=== PATIENT | female | born 1995 | race Caucasian/White ===

== ENCOUNTER 2017-03-17 17:44 | Observation (INO) | payer OTHER ==
[2017-03-17] MEDS ORDERED: Lactated Ringers 1,000 ML IV SCH (18:30)
[2017-03-17] MEDS ORDERED: TYLENOL 325 MG PO PRN (18:31)
[2017-03-17] MEDS ORDERED: Lactated Ringers 1,000 ML IV ONE (18:38)
[2017-03-17 18:59] VITALS: O2SAT 105
[2017-03-17 19:32] LABS: COMPLETE URINE MICROSCOPIC? NO; Collection Type CLEAN CATCH
[2017-03-17 19:41] LABS: BASOPHIL % 0.1 % (0.0-0.4); Eosinophil % 0.4 % (0.00-5.0); Granulocytes % 71.8 % (36.0-66.0); Lymphocytes % 18.4 % (24.0-44.0); Mean Cell Volume 87.3 fl (78-100); Mean Corpuscular Hemoglobin 30.3 pg (26-32); Mean Platelet Volume 11.2 fl (6-9.5); Monocytes % 9.3 % (0.0-12.0); Platelet Count 246 K/mm3 (150-450); Red Blood Count 4.72 M/mm3 (4.1-5.4)
[2017-03-17 20:07] LABS: ALKALINE PHOSPHATASE 56 U/L (46-116); ANION GAP 13.1 MEQ/L (5-15); BILIRUBIN,TOTAL 0.2 mg/dL (0.2-1.0); BLOOD UREA NITROGEN 6 mg/dL (9-20); CHLORIDE 106 mEq/L (98-107); Carbon Dioxide 24.2 mEq/L (21-32); Glucose 78 MG/DL (70-110); Potassium 3.5 mEq/L (3.5-5.1); SGOT/AST 14 U/L (15-37); SGPT/ALT 16 U/L (12-78); SODIUM 140 mEq/L (136-145); Total Protein 6.8 gm/dL (6.4-8.2)
[2017-03-17 22:58] VITALS: BP 127/71; PULSE 91
== END 2017-03-17 22:00 | disposition home or self-care (01) ==
LOC: MED SURG 17:44
PROVIDERS: ADMIT Family Medicine; ATTEND Family Medicine
DX: Z34.02 Encounter for supervision of normal first pregnancy, second trimester (principal)
CPT/HCPCS: 36415; 80053; 80307; 81002; 84550; 85025; 87086; G0378

== ENCOUNTER 2017-05-06 13:26 | Observation (INO) | payer OTHER ==
[2017-05-06 13:54] LABS: BASOPHIL % 0.1 % (0.0-0.4); Eosinophil % 0.3 % (0.00-5.0); Granulocytes % 76.6 % (36.0-66.0); Mean Cell Volume 88.6 fl (78-100); Mean Corpuscular Hemoglobin 30.4 pg (26-32); Mean Platelet Volume 11.9 fl (6-9.5); Platelet Count 188 K/mm3 (150-450); Red Blood Count 4.84 M/mm3 (4.1-5.4); Red Cell Distribution Width 13.2 % (11.5-14.0); White Blood Count 12.4 K/mm3 (4.0-10.5)
[2017-05-06 14:20] LABS: ALBUMIN 2.6 g/dL (3.4-5.0); ALKALINE PHOSPHATASE 82 U/L (46-116); ANION GAP 12.6 MEQ/L (5-15); BLOOD UREA NITROGEN 5 mg/dL (9-20); CHLORIDE 105 mEq/L (98-107); Carbon Dioxide 24.4 mEq/L (21-32); Glucose 94 MG/DL (70-110); Potassium 3.9 mEq/L (3.5-5.1); SGOT/AST 17 U/L (15-37); SGPT/ALT 16 U/L (12-78); SODIUM 138 mEq/L (136-145)
[2017-05-06 23:59] VITALS: BP 156/95; PULSE 56
== END 2017-05-06 23:00 | disposition home or self-care (01) ==
LOC: LAB 13:26 → OB 21:02 → UNDOADMOB 21:02 → UNDODISOB 23:00
PROVIDERS: ADMIT Family Medicine; ATTEND Family Medicine
DX: Z34.03 Encounter for supervision of normal first pregnancy, third trimester (principal)
CPT/HCPCS: 36415; 80053; 84550; 85025; G0378

== ENCOUNTER 2017-05-07 12:47 | Observation (INO) | payer OTHER ==
[2017-05-07 15:54] LABS: 24 HR TOT. PROTEIN CALCULATION 0.399 GM/DAY (0.04-0.15)
[2017-05-07] MEDS ORDERED: Trandate 100 MG PO ONE ×2 (18:23→20:00)
[2017-05-07] MEDS: APRESOLINE 20 MG/ML INJ IV PRN (23:49)
[2017-05-08 05:39] LABS: BASOPHIL % 0.2 % (0.0-0.4); Eosinophil % 0.3 % (0.00-5.0); Granulocytes % 73.1 % (36.0-66.0); Lymphocytes % 17.1 % (24.0-44.0); Mean Corpuscular Hemoglobin 30.5 pg (26-32); Mean Platelet Volume 12.2 fl (6-9.5); Monocytes % 9.3 % (0.0-12.0); Platelet Count 166 K/mm3 (150-450); Red Blood Count 4.29 M/mm3 (4.1-5.4); Red Cell Distribution Width 13.1 % (11.5-14.0); White Blood Count 12.1 K/mm3 (4.0-10.5)
[2017-05-08 06:15] LABS: ALBUMIN 2.2 g/dL (3.4-5.0); ALKALINE PHOSPHATASE 68 U/L (46-116); ANION GAP 13.8 MEQ/L (5-15); BLOOD UREA NITROGEN 5 mg/dL (9-20); CHLORIDE 108 mEq/L (98-107); Carbon Dioxide 21.3 mEq/L (21-32); Glucose 84 MG/DL (70-110); Potassium 3.7 mEq/L (3.5-5.1); SGOT/AST 15 U/L (15-37); SGPT/ALT 16 U/L (12-78); SODIUM 139 mEq/L (136-145)
[2017-05-08] MEDS ORDERED: TYLENOL 325 MG PO PRN (06:34)
[2017-05-08] MEDS: APRESOLINE 20 MG/ML INJ IV PRN (07:26)
[2017-05-08] MEDS ORDERED: Zofran 4 MG/2 ML VIAL IV PRN (08:06)
--- NOTE | 2017-05-08 08:16 | XRAY ---
Indication: well-being. Hypertension. 2-dimensional OB ultrasound performed. Comparison: February 18, 2017. Again there is a single viable intrauterine in cephalic presentation. Normal four-chamber heart with heart rate 170 bpm. Normal 3 vessel cord and cord insertion. Visualized spine, stomach, and bladder are unremarkable. Placenta is posterior fundal without abruption/previa. Cervical length measures 2.6 cm. BPD measures 7.57 cm corresponding to 30 weeks 3 days. HC measures 25.83 cm corresponding to 28 weeks 1 days. AC measures 24.68 cm corresponding to 28 weeks 6 days. FL measures 5.46 cm corresponding to 28 weeks 6 days. BILLY is 9.4 cm. Umbilical cord S/D ratio is 6.1-10.1. Impression: Again single viable intrauterine with mean gestational age 29 weeks 1 days. There has been progression in the . Fetus measures 7 days smaller than previous exam. 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
[2017-05-08] MEDS ORDERED: Celestone Soluspan 6MG/ML IM ONE (09:23)
[2017-05-08] MEDS ORDERED: Lactated Ringers 1,000 ML IV SCH (09:30)
[2017-05-08] MEDS ORDERED: Magnesium Sulfate 40 Gm/1000 Ml H2O Premix*** 1,000 ML IV SCH (09:30)
--- NOTE | 2017-05-08 09:32 | PCM.HP ---
History of Present Illness - Chief Complaint Chief Complaint: OB CHECK History of Present Illness: is a 21 year old female at 30 3/7 wks EGA by 12 week ultrasound he presents to the labor and delivery department with complaints of elevated blood pressure. She was seen in office 2 days ago and had elevated bp for the first time, 24 hour urine protein was 399mg. She was started on po labetalol last night and had required 2 spot doses of IV hydralazine overnight. she complained of headache and vomited x 1 this am. - Review of Systems Constitutional: No Fever, No Chills Respiratory: No Cough, No Short Of Breath Cardiac: No Chest Pain, No Edema, No Syncope Abdominal/Gastrointestinal: Nausea, Vomiting, No Abdominal Pain, No Diarrhea Neurological: Headache, No Seizure All Other Systems: Reviewed and Negative Medications & Allergies Home Medications: Home Medication List Hydroxyzine HCl 25 mg [Atarax 25 mg] 25 mg PO TID PRN 05/07/17 [History Confirmed 05/07/17] Allergies/Adverse Reactions: Allergies Allergy/AdvReac Type Severity Reaction Status Date / Time Sulfa (Sulfonamide Allergy Intermediate Hives Verified 05/06/17 21:31 Antibiotics) - Female History Expected Date of Delivery: 07/14/17 - Social History Smoking Status: Never smoker Exposure to second hand smoke: Yes - Physical Exam Vital Signs: Vital Signs - 24 hr Temp Pulse Resp BP BP 05/08/17 08:30 117 H 144/89 05/08/17 08:15 96 H 147/92 05/08/17 08:00 111 H 152/95 05/08/17 07:45 139 H 160/102 05/08/17 07:30 85 154/92 05/08/17 07:00 56 L 167/99 05/08/17 06:30 60 143/81 05/08/17 06:00 67 142/87 05/08/17 05:30 67 145/91 05/08/17 04:56 81 139/88 05/08/17 04:30 96 H 152/78 05/08/17 04:00 82 135/80 05/08/17 03:30 75 128/79 05/08/17 03:00 72 129/81 05/08/17 02:30 71 131/79 05/08/17 02:00 74 124/69 05/08/17 01:30 75 131/68 05/08/17 01:00 69 132/74 05/08/17 00:45 76 142/78 05/08/17 00:30 74 135/78 05/08/17 00:15 68 135/78 05/08/17 00:00 60 146/83 05/07/17 23:45 50 L 178/97 05/07/17 23:30 55 L 181/96 05/07/17 23:15 98.8 F 52 L 159/98 05/07/17 23:00 50 L 152/94 05/07/17 22:45 56 L 153/90 05/07/17 22:30 52 L 168/94 05/07/17 22:15 53 L 167/100 05/07/17 22:00 52 L 156/100 05/07/17 21:45 60 152/92 05/07/17 21:30 56 L 154/92 05/07/17 21:15 61 175/92 05/07/17 21:00 60 167/98 05/07/17 20:45 56 L 173/103 05/07/17 20:30 64 164/95 05/07/17 20:15 57 L 176/100 05/07/17 20:00 61 191/109 05/07/17 18:04 87 18 167/114 05/07/17 18:00 87 18 167/114 General Appearance: no apparent distress, alert Neurologic Exam: alert, oriented x 3, cooperative, normal mood/affect, nml cerebellar function, nml station & gait, sensation nml, other (DTR 2+ brisk BLE) , No motor deficits Eye Exam: PERRL/EOMI, eyes nml inspection Respiratory Exam: normal breath sounds, lungs clear, No respiratory distress Cardiovascular Exam: regular rate/rhythm, normal heart sounds, normal peripheral pulses Gastrointestinal/Abdomen Exam: soft, normal bowel sounds, No tenderness, No mass Extremity Exam: normal inspection, normal range of motion, pelvis stable Results - Labs Lab/Micro Results: Lab Results-Last 24 Hours 05/07/17 05/08/17 05/08/17 Range/Units 12:00 05:16 05:16 WBC 12.1 H (4.0-10.5) K/mm3 RBC 4.29 (4.1-5.4) M/mm3 Hgb 13.1 (12.0-16.0) gm/dl Hct 38.2 (35-47) % MCV 89.0 (78-100) fl MCH 30.5 (26-32) pg MCHC 34.3 (32-36) g/dl RDW 13.1 (11.5-14.0) % Plt Count 166 (150-450) K/mm3 MPV 12.2 H (6-9.5) fl Gran % 73.1 H (36.0-66.0) % Lymphocytes % 17.1 L (24.0-44.0) % Monocytes % 9.3 (0.0-12.0) % Eosinophils % 0.3 (0.00-5.0) % Basophils % 0.2 (0.0-0.4) % Basophils # 0.02 (0-0.4) Sodium 139 (136-145) mEq/L Potassium 3.7 (3.5-5.1) mEq/L Chloride 108 H (98-107) mEq/L Carbon Dioxide 21.3 (21-32) mEq/L Anion Gap 13.8 (5-15) MEQ/L BUN 5 L (9-20) mg/dL Creatinine 0.55 (0.55-1.30) mg/dl Estimated GFR > 60 ML/MIN Glucose 84 (70-110) MG/DL Calcium 8.6 (8.5-10.1) mg/dL Total Bilirubin 0.10 L (0.2-1.0) mg/dL AST 15 (15-37) U/L ALT 16 (12-78) U/L Alkaline Phosphatase 68 (46-116) U/L Serum Total Protein 6.0 L (6.4-8.2) gm/dL Albumin 2.2 L (3.4-5.0) g/dL Ur 24 Hour Volume 1975 ML Ur Total Protein 24 Hr 21.5 MG/DL U Tot Protein 24h, Calc 0.399 H (0.04-0.15) GM/DAY - Radiology Impressions Radiology Exams & Impressions: Radiology Procedures Category Date Time Status OB >14 WKS 1st GESTATION [US] Stat Exams 05/07/17 18:24 Completed Assessment/Plan (1) Pre-eclampsia Current Visit: Yes Status: Acute Assessment & Plan: I spoke with Dr Lenny Castaneda high risk MFM information engineer at , he agrees with current management, requests that transfer be arranged to [facility] via [facility] with highway painter nurse. will start magnesium sulfate 6g bolus then 2g/hr infusion and give celestone 12mg IM per his request. Code(s): O14.90 - UNSPECIFIED PRE-ECLAMPSIA, UNSPECIFIED TRIMESTER (2) Uteroplacental insufficiency, third trimester Current Visit: Yes Status: Acute Code(s): O36.5130 - MATERN CARE FOR OR SUSP PLACNTL INSUFF, THIRD TRI, UNSP
--- NOTE | 2017-05-08 09:34 | PCM.DCORD ---
- Discharge Disposition: XFER OTHER Condition: Serious Prescriptions: No Action Hydroxyzine HCl 25 mg [Atarax 25 mg] 25 mg PO TID PRN PRN Reason: Anxiety Additional Instructions: transfer to [facility] accepting physician Dr Lenny Castaneda
[2017-05-08 09:38] LABS: INR 0.87 (0.8-3.0); PROTIME 9.8 SECONDS (9.95-12.35)
[2017-05-08 09:41] LABS: PTT 25.8 SECONDS (25.3-37.0)
[2017-05-08 10:27] LABS: COMPLETE URINE MICROSCOPIC? YES; Collection Type CATH; Ph 7.5 (5-6)
[2017-05-08 10:28] LABS: Epithelial Cells FEW /HPF (FEW)
[2017-05-08 12:27] VITALS: O2SAT 95
[2017-05-08 12:36] VITALS: BP 150/93; PULSE 98
== END 2017-05-08 11:48 ==
LOC: LAB 12:47 → OB 17:53
PROVIDERS: ADMIT Family Medicine; ATTEND Family Medicine
DX: Z34.03 Encounter for supervision of normal first pregnancy, third trimester (principal)
CPT/HCPCS: 36415; 76805; 80053; 81000; 84156; 85025; 85610; 85730; 87086; G0378; J0360; J0702; J2405; A9270-GY

== ENCOUNTER 2018-11-21 18:48 | Emergency (ER) | payer OTHER ==
[2018-11-21 19:09] VITALS: BP 124/79; PULSE 121; O2SAT 97
[2018-11-21] MEDS ORDERED: TYLENOL 325 MG PO ONE (19:18)
--- NOTE | 2018-11-21 19:23 | ERPHSYRPT ---
- History of Present Illness Time Seen by Provider: 11/21/18 19:11 Source: patient Exam Limitations: no limitations Patient Subjective Stated Complaint: pt here for sorethroat, fever, congestion today Triage Nursing Assessment: pt alert, resp easy, skin w/d/p. no edema, mucus membranes moist Physician History: 23 y/o white female arrives with complaint of sorethroat, cought fever for 2-3 days. no urinary symptoms, no vomiting , no diarrhea, no shortness of breath. Past medical history hypertension. past surgical history c section. social history : occasional alcohol use. Timing/Duration: day(s) (2-3 days) Severity: moderate Modifying Factors: Improves With: acetaminophen (tylenol at noon today) Associated Symptoms: cough, fever, other (sore throat), No nausea, No vomiting, No abdominal pain, No shortness of breath, No heartburn, No diaphoresis, No chills, No chest pain, No headaches, No loss of appetite, No malaise, No rash, No syncope, No seizure, No weakness Allergies/Adverse Reactions: Sulfa (Sulfonamide Antibiotics) Allergy (Intermediate, Verified 11/21/18 19:09) Hives Home Medications: Labetalol HCl 200 mg PO BID 05/25/17 [History] Hx Tetanus, Diphtheria Vaccination/Date Given: Yes Hx Influenza Vaccination/Date Given: Yes Hx Pneumococcal Vaccination/Date Given: No Immunizations Up to Date: Yes - Review of Systems Constitutional: Fever, No Chills, No Fatigue, No Lethargy, No Malaise, No Night Sweats, No Weakness, No Weight Loss Eyes: No Symptoms Ears, Nose, & Throat: Ear Pain, Nose Congestion, Throat Pain, Painful Swallowing , No Ear Discharge, No Hearing Changes, No Tinnitus, No Nose Pain, No Nose Discharge, No Sinus Drainage, No Epistaxis, No Mouth Pain, No Mouth Swelling, No Loose Teeth, No Throat Swelling, No Hoarse, No Snoring, No Stridor Respiratory: Cough, No Cyanosis, No Dyspnea, No Dyspnea on Exertion (GERBER), No Stridor, No Wheezing Cardiac: No Chest Pain, No Edema, No Syncope Genitourinary Symptoms: No Dysuria Musculoskeletal: No Back Pain, No Neck Pain Skin: No Rash Neurological: No Dizziness, No Focal Weakness, No Sensory Changes Psychological: No Symptoms Endocrine: No Symptoms All Other Systems: Reviewed and Negative - Past Medical History Pertinent Past Medical History: Yes Cardiac History: Hypertension - Past Surgical History Past Surgical History: Yes Female Surgical History: Section - Social History Smoking Status: Never smoker Exposure to second hand smoke: No Drug Use: none Patient Lives Alone: No - Female History Hx Last Menstrual Period: 2 weeks ago Hx Now: No (unsure) - Nursing Vital Signs Nursing Vital Signs: Initial Vital Signs Temperature 101.7 F 11/21/18 19:05 Pulse Rate 121 H 11/21/18 19:05 Respiratory Rate 16 11/21/18 19:05 Blood Pressure 124/79 11/21/18 19:05 O2 Sat by Pulse Oximetry 97 11/21/18 19:05 Pain Scale Pain Intensity 3 - Physical Exam General Appearance: mild distress, alert Eye Exam: PERRL/EOMI, eyes nml inspection Ears, Nose, Throat Exam: TMs normal, moist mucous membranes, pharyngeal erythema , No pharynx normal (throat erythematous), No dry mucous membranes, No TM abnormal (R), No TM abnormal (L), No tonsillar exudate Neck Exam: normal inspection, non-tender, supple, full range of motion Respiratory Exam: normal breath sounds, lungs clear, No respiratory distress Cardiovascular Exam: regular rate/rhythm, normal heart sounds, normal peripheral pulses, capillary refill <2 sec Gastrointestinal/Abdomen Exam: soft, normal bowel sounds, No tenderness, No mass Back Exam: normal inspection, normal range of motion, No CVA tenderness, No vertebral tenderness Extremity Exam: normal inspection, normal range of motion, pelvis stable Neurologic Exam: alert, oriented x 3, cooperative, product advisor II-XII nml as tested, normal mood/affect, nml cerebellar function, nml station & gait, sensation nml, No motor deficits Skin Exam: normal color, warm, dry, other, No rash Lymphatic Exam: No adenopathy SpO2 Interpretation: normal (97%) SpO2: 97 Oxygen Delivery: Room Air - Course Nursing assessment & vital signs reviewed: Yes Ordered Tests: Active Orders 24 hr Category Date Time Status HCG,QUALITATIVE URINE Stat Lab 11/21/18 19:53 Completed UA W/RFX UR CULTURE Stat Lab 11/21/18 19:53 Completed Medication Summary Discontinued Medications Generic Name Dose Route Start Last Admin Trade Name Freq PRN Reason Stop Dose Admin Acetaminophen 975 mg 11/21/18 19:18 11/21/18 19:57 Tylenol 325 Mg PO 11/21/18 19:19 975 mg STAT ONE Administration Acetaminophen Confirm 11/21/18 19:55 Tylenol 325 Mg Administered 11/21/18 19:56 Dose 975 mg .ROUTE .STK-MED ONE Ibuprofen 600 mg 11/21/18 20:12 11/21/18 20:20 Motrin 600 Mg PO 11/21/18 20:13 600 mg STAT ONE Administration Ibuprofen Confirm 11/21/18 20:14 Motrin 600 Mg Administered 11/21/18 20:15 Dose 600 mg .ROUTE .STK-MED ONE Lab/Rad Data: Laboratory Results 11/21/18 11/21/18 11/21/18 Range/Units 19:53 19:53 19:22 Urine Color YELLOW (YELLOW) Urine Appearance CLEAR (CLEAR) Urine pH 7.0 (5-6) Ur Specific Ramsey 1.021 (1.005-1.025) Urine Protein NEGATIVE (Negative) Urine Ketones NEGATIVE (NEGATIVE) Urine Blood SMALL (0-5) [place]/ul Urine Nitrite NEGATIVE (NEGATIVE) Urine Bilirubin NEGATIVE (NEGATIVE) Urine Urobilinogen 2 (0-1) mg/dL Ur Leukocyte Esterase NEGATIVE (NEGATIVE) Urine WBC (Auto) 0-2 (0-5) /HPF Urine RBC (Auto) 3-5 (0-2) /HPF U Epithel Cells (Auto) RARE (FEW) /HPF Urine Bacteria (Auto) RARE (NEGATIVE) /HPF Urine Mucus (Auto) SLIGHT (NEGATIVE) /HPF Urine Culture Reflexed NO (NO) Urine Glucose NEGATIVE (NEGATIVE) mg/dL Urine HCG, Qual NEGATIVE (Negative) Group A Strep Antibody NEGATIVE (NEGATIVE) - Progress Progress: improved Progress Note: 11/21/18 20:09 patient feeling better after oral tylenol. the patient's strep test is negative, the patient's hcg is negative, the patient 's urine is negative. unfortunately her temperature has increased will give oral motrin. 11/21/18 21:09 Patient's temperature has decreased. Patient is in no distress. Will discharge. - Departure Time of Disposition: 21:09 Departure Disposition: Home Clinical Impression: Viral pharyngitis Fever Qualifiers: Fever type: unspecified Qualified Code(s): R50.9 - Fever, unspecified Condition: Fair Critical Care Time: No Referrals: DIDIER GARG [Primary Care Provider] - Additional Instructions: Return home. Plenty of fluids. Tylenol every 4 hours as needed for temperature greater than 100.5. Motrin every 6 hours as needed for temperature greater than 100.5. Follow-up with your family doctor if symptoms are worse, no better in 24-48 hours, or persist longer than 72 hours. Return for acute distress or for severe symptoms.
[2018-11-21] MEDS ORDERED: TYLENOL 325 MG ONE (19:55)
[2018-11-21 20:01] LABS: Appearance CLEAR (CLEAR); Bilirubin NEGATIVE (NEGATIVE); Blood SMALL Ery/ul (0-5); Glucose NEGATIVE (NEGATIVE); Ketones NEGATIVE (NEGATIVE); Leukocyte Esterase NEGATIVE (NEGATIVE); Nitrite NEGATIVE (NEGATIVE); Protein,Urine Dip NEGATIVE (Negative); Specific Gravity 1.021 (1.005-1.025); Urobilinogen 2 mg/dL (0-1)
[2018-11-21] MEDS ORDERED: MOTRIN 600 MG PO ONE (20:12)
[2018-11-21] MEDS ORDERED: MOTRIN 600 MG ONE (20:14)
== END 2018-11-21 21:20 | disposition home or self-care (01) ==
LOC: ED 18:48
DX: J02.9 Acute pharyngitis, unspecified (principal); R50.9 Fever, unspecified; Z79.899 Other long term (current) drug therapy
CPT/HCPCS: 81001; 84703; 87651; 99283; A9270-GY

== ENCOUNTER 2020-04-29 00:27 | Emergency (ER) | payer OTHER ==
[2020-04-29 00:39] VITALS: O2SAT 98
--- NOTE | 2020-04-29 00:59 | ERPHSYRPT ---
- History of Present Illness Source: patient Exam Limitations: no limitations Patient Subjective Stated Complaint: pt c/o vaginal bleeding and is 13 wks Triage Nursing Assessment: pt c/o vaginal bleeding and is 13 weeks . At 1830, small amt of spotting, but at 2230 mod amt of bleeding and had to change her entire pants. Pt had some mild cramping yesterday. Physician History: WF 13wks preg w 2 episodes of vaginal bleeding. Pt denies any pain. First episode similar yo a period, but the second episode heavier. Pt denies N/V/D/ fever. Shge is A+. Timing/Duration: other (2 episodes since 1829) Quality: other (No pain) Onset Location: other (No pain) Severity of Pain-Max: none Severity of Pain-Current: none Prior abdominal problems: none Sexual intercourse history: other () Modifying Factors: Improves With: nothing Associated Symptoms: denies symptoms Allergies/Adverse Reactions: Sulfa (Sulfonamide Antibiotics) Allergy (Intermediate, Verified 04/29/20 00:44) Hives Home Medications: Labetalol HCl 200 mg PO BID 05/25/17 [History] Hx Tetanus, Diphtheria Vaccination/Date Given: Yes Hx Influenza Vaccination/Date Given: No Hx Pneumococcal Vaccination/Date Given: No Travel Risk - International Travel Have you traveled outside of the country in past 3 weeks: No Have you or anyone close to you been diagnosed with or: No Do your reside in a community with a known COVID-19 case?: Yes If Yes where:: [facility] - Coronavirus Screening Has patient experienced Coronavirus symptoms: No - Review of Systems Constitutional: No Symptoms Eyes: No Symptoms Ears, Nose, & Throat: No Symptoms Respiratory: No Symptoms Cardiac: No Symptoms Abdominal/Gastrointestinal: No Symptoms Genitourinary Symptoms: No Dysuria, No Frequency, No Hematuria Musculoskeletal: No Symptoms Skin: No Symptoms Neurological: No Symptoms Psychological: No Symptoms Endocrine: No Symptoms Hematologic/Lymphatic: No Symptoms Immunological/Allergic: No Symptoms - Past Medical History Pertinent Past Medical History: Yes Neurological History: No Pertinent History ENT History: No Pertinent History Cardiac History: Hypertension, Other Respiratory History: No Pertinent History Endocrine Medical History: No Pertinent History Musculoskeletal History: No Pertinent History GI Medical History: No Pertinent History History: No Pertinent History Psycho-Social History: Anxiety Female Reproductive Disorders: No Pertinent History Other Medical History: leaky heart valve - Past Surgical History Past Surgical History: Yes Neuro Surgical History: No Pertinent History Cardiac: No Pertinent History Respiratory: No Pertinent History Gastrointestinal: No Pertinent History Genitourinary: No Pertinent History Musculoskeletal: No Pertinent History Female Surgical History: Section - Social History Smoking Status: Never smoker Exposure to second hand smoke: No Drug Use: none Patient Lives Alone: No Significant Family History: no pertinent family hx - Female History Hx Now: Yes Expected Date of Delivery: 11/06/20 Gestational Age: G2, P1 - Nursing Vital Signs Nursing Vital Signs: Initial Vital Signs Temperature 98.0 F 04/29/20 00:33 Pulse Rate 85 04/29/20 00:33 Respiratory Rate 15 04/29/20 00:33 Blood Pressure 144/88 04/29/20 00:33 O2 Sat by Pulse Oximetry 98 04/29/20 00:33 Pain Scale Pain Intensity 0 - Physical Exam General Appearance: no apparent distress Eye Exam: PERRL/EOMI, eyes nml inspection Ears, Nose, Throat Exam: normal ENT inspection, TMs normal, pharynx normal, moist mucous membranes Neck Exam: normal inspection, non-tender Respiratory Exam: normal breath sounds, lungs clear, airway intact, No respiratory distress Cardiovascular Exam: regular rate/rhythm, normal heart sounds Gastrointestinal/Abdomen Exam: soft, normal bowel sounds, No tenderness Pelvic Exam: not done Rectal Exam: deferred Back Exam: normal inspection Extremity Exam: normal inspection Neurologic Exam: alert, oriented x 3, cooperative, plant taxonomist II-XII nml as tested, normal mood/affect, nml cerebellar function, nml station & gait, sensation nml, motor deficits, sensory deficit Skin Exam: normal color, warm, dry Lymphatic Exam: No adenopathy SpO2 Interpretation: normal SpO2: 98 O2 Delivery: Room Air Procedures - Ultrasound Ultrasound: Other (Report per tech-IUP 13wks/subchorionic hemorrhage) - Course Nursing assessment & vital signs reviewed: Yes - CT Exams Chest CT Interpretation: Negative, Tele-radiologist Report Lumbar Spine CT Interpretation: Negative, Tele-radiologist Report Ordered Tests: Active Orders 24 hr Category Date Time Status Isolation, Initiate & Maintain Q4H Care 04/29/20 00:44 Active OB <14 WKS 1ST GESTATION [US] Stat Exams 04/29/20 01:50 Taken CBC W DIFF Stat Lab 04/29/20 01:19 Completed HCG, Quantitative (Inhouse) Stat Lab 04/29/20 01:19 Received Lab/Rad Data: Laboratory Result Diagrams 04/29/20 01:19 Laboratory Results 04/29/20 Range/Units 01:19 WBC 12.2 H (4.0-10.5) K/mm3 RBC 4.39 (4.1-5.4) M/mm3 Hgb 13.4 (12.0-16.0) gm/dl Hct 38.6 (35-47) % MCV 87.9 (78-100) fl MCH 30.5 (26-32) pg MCHC 34.7 (32-36) g/dl RDW 12.8 (11.5-14.0) % Plt Count 258 (150-450) K/mm3 MPV 10.9 (7.5-11.0) fl Gran % 69.9 H (36.0-66.0) % Eos # (Auto) 0.12 (0-0.5) Absolute Lymphs (auto) 2.39 (1.0-4.6) Absolute Monos (auto) 1.15 (0.0-1.3) Lymphocytes % 19.5 L (24.0-44.0) % Monocytes % 9.4 (0.0-12.0) % Eosinophils % 1.0 (0.00-5.0) % Basophils % 0.2 (0.0-0.4) % Absolute Granulocytes 8.54 H (1.4-6.9) Basophils # 0.03 (0-0.4) - Progress Progress: improved Air Movement: good Progress Note: 04/29/20 01:53 13wk IUP w small subchorionic hemorrhage per tech/CBC wnl/A+ per hx Counseled pt/family regarding: lab results, rad results - Departure Departure Disposition: Home Clinical Impression: First trimester bleeding Condition: Stable Critical Care Time: No Referrals: DIDIER GARG [Primary Care Provider] - Instructions: Bleeding With (DC) Additional Instructions: Call ob in AM for further direction
[2020-04-29 01:38] LABS: Absolute Neutrophil Ct (ANC) 8.54 (1.4-6.9); BASOPHIL % 0.2 % (0.0-0.4); Basophil (Absolute #) 0.03 (0-0.4); Eosinophil (Absolute #) 0.12 (0-0.5); Hematocrit 38.6 % (35-47); Hemoglobin 13.4 gm/dl (12.0-16.0); Lymphocyte (Absolute #) 2.39 (1.0-4.6); Lymphocytes % 19.5 % (24.0-44.0); Mean Cell Volume 87.9 fl (78-100); Mean Corpuscular Hemoglobin 30.5 pg (26-32); Mean Corpuscular Hgb Concent. 34.7 g/dl (32-36); Mean Platelet Volume 10.9 fl (7.5-11.0); Monocyte (Absolute #) 1.15 (0.0-1.3); Monocytes % 9.4 % (0.0-12.0); Neutrophil % 69.9 % (36.0-66.0); Platelet Count 258 K/mm3 (150-450); Red Blood Count 4.39 M/mm3 (4.1-5.4); Red Cell Distribution Width 12.8 % (11.5-14.0); White Blood Count 12.2 K/mm3 (4.0-10.5)
[2020-04-29 01:56] VITALS: BP 121/70; PULSE 83
--- NOTE | 2020-04-29 09:40 | XRAY ---
Indication: Bleeding. Two-dimensional transabdominal early OB ultrasound performed. Comparison: March 20, 2020. Again there is a single viable intrauterine with mean crown-rump length 6.87 cm corresponding to 13 weeks 1 day. heart rate 171 BPM. New 2.5 x 0.5 x 2.8 cm subchorionic hemorrhage. Left and right ovary is not seen. No suspicious adnexal mass or free fluid. Impression: Again single viable intrauterine measuring 13 weeks 1 day. Normal progression of . New small subchronic hemorrhage. Comment: Preliminary report was given.
== END 2020-04-29 02:06 | disposition home or self-care (01) ==
LOC: ED 00:27
DX: O20.9 Hemorrhage in early pregnancy, unspecified (principal); Z3A.13 13 weeks gestation of pregnancy
CPT/HCPCS: 36000; 36415; 76801; 84702; 85025; 99284

== ENCOUNTER 2020-05-06 11:06 | Emergency (ER) | payer OTHER ==
--- NOTE | 2020-05-06 11:34 | ERPHSYRPT ---
- History of Present Illness Time Seen by Provider: 05/06/20 11:30 Source: patient, family Exam Limitations: no limitations Patient Subjective Stated Complaint: Pt states "I have a slight hemmorrhage in my uterus and have been getting ultra sounds frequently. I started to bleed pretty bad last night." Triage Nursing Assessment: Pt presented alert and oriented X 3, skin pwd Pt ambulates with an upright steady gait, able to speakin clear full sentences. pt in no apparent respiratory distress. Physician History: This is a 24-year-old white female who is approximately 14 weeks . This is her second . She has had several episodes of vaginal bleeding. She is a positive on her blood type. On 04/29/2020 she had a similar complaint, that is, vaginal bleeding. An ultrasound revealed subchorionic hemorrhage present. Her hemoglobin on that date was 13.4. On 05/02/2020 patient had a repeat obstetric ultrasound which showed minimally enlarging subchorionic hemorrhage. Last night, the patient had significant bleed vaginally. She bled through 2 pads. Today, she has not bled spontaneously but does have some spotting when attempting to urinate. Patient states she has had no pain but more of a uterine ache. Patient arrives with her vital signs stable. Patient contacted her primary care physician's office who is caring for her obstetrically. They told her to come to the emergency department for evaluation. Patient has had no fever. She has no nausea vomiting or diarrhea. Patient denies abdominal pain. Patient denies chest pain. Patient denies shortness of breath Timing/Duration: yesterday Activites at Onset: none Quality: aching (Mild suprapubic) Onset Location: suprapubic Pain Radiation: none Severity of Pain-Max: mild Severity of Pain-Current: mild Prior abdominal problems: none Sexual intercourse history: non-contributory Modifying Factors: Improves With: nothing Associated Symptoms: , vaginal discharge (Today, mild spotting with urinating), No abdominal pain, No fever, No nausea, No vomiting Allergies/Adverse Reactions: Sulfa (Sulfonamide Antibiotics) Allergy (Intermediate, Verified 04/29/20 14:22) Hives Home Medications: Labetalol HCl 200 mg PO BID 05/25/17 [History] Aspirin [Aspirin EC] 81 mg PO DAILY 05/06/20 [History] Hx Tetanus, Diphtheria Vaccination/Date Given: Yes Hx Influenza Vaccination/Date Given: No Hx Pneumococcal Vaccination/Date Given: No Travel Risk - International Travel Have you traveled outside of the country in past 3 weeks: No - Coronavirus Screening Are you exhibiting any of the following symptoms?: No Close contact with a COVID-19 positive Pt in past 14-21 Days: No - Review of Systems Constitutional: No Symptoms Eyes: No Symptoms Ears, Nose, & Throat: No Symptoms Respiratory: No Symptoms Cardiac: No Symptoms Abdominal/Gastrointestinal: No Symptoms Genitourinary Symptoms: Vaginal Bleeding Musculoskeletal: No Symptoms Skin: No Symptoms Neurological: No Symptoms Psychological: No Symptoms Endocrine: No Symptoms Hematologic/Lymphatic: No Symptoms Immunological/Allergic: No Symptoms All Other Systems: Reviewed and Negative - Past Medical History Pertinent Past Medical History: Yes Neurological History: No Pertinent History ENT History: No Pertinent History Cardiac History: Hypertension, Other Respiratory History: No Pertinent History Endocrine Medical History: No Pertinent History Musculoskeletal History: No Pertinent History GI Medical History: No Pertinent History History: No Pertinent History Psycho-Social History: Anxiety Female Reproductive Disorders: No Pertinent History Other Medical History: leaky heart valve - Past Surgical History Past Surgical History: Yes Neuro Surgical History: No Pertinent History Cardiac: No Pertinent History Respiratory: No Pertinent History Gastrointestinal: No Pertinent History Genitourinary: No Pertinent History Musculoskeletal: No Pertinent History Female Surgical History: Section - Social History Smoking Status: Never smoker Exposure to second hand smoke: No Drug Use: none Patient Lives Alone: No Significant Family History: no pertinent family hx - Female History Hx Last Menstrual Period: 12/2019 Hx Now: Yes Expected Date of Delivery: 11/06/20 - Nursing Vital Signs Nursing Vital Signs: Initial Vital Signs Temperature 98.2 F 05/06/20 11:18 Pulse Rate 75 05/06/20 11:18 Respiratory Rate 20 05/06/20 11:18 Blood Pressure 147/88 05/06/20 11:18 O2 Sat by Pulse Oximetry 100 05/06/20 11:18 Pain Scale Pain Intensity 2 - Physical Exam General Appearance: no apparent distress, alert, anxiety Eye Exam: PERRL/EOMI, eyes nml inspection Ears, Nose, Throat Exam: normal ENT inspection, moist mucous membranes Neck Exam: normal inspection, non-tender Respiratory Exam: normal breath sounds, lungs clear, airway intact, No chest tenderness, No respiratory distress Cardiovascular Exam: regular rate/rhythm, normal heart sounds, normal peripheral pulses Gastrointestinal/Abdomen Exam: soft, normal bowel sounds, No tenderness Pelvic Exam: not done Back Exam: normal inspection, normal range of motion, No CVA tenderness, No vertebral tenderness Extremity Exam: normal inspection, normal range of motion, pelvis stable Neurologic Exam: alert, oriented x 3, cooperative, animal science professor II-XII nml as tested Skin Exam: normal color, warm, dry Lymphatic Exam: No adenopathy SpO2 Interpretation: normal SpO2: 100 O2 Delivery: Room Air Ordered Tests: Active Orders 24 hr Category Date Time Status Heart Tones-ED STAT Care 05/06/20 11:46 Active OB >14 WKS 1st GESTATION [US] Stat Exams 05/06/20 11:36 Completed BMP Stat Lab 05/06/20 12:25 Completed CBC W DIFF Stat Lab 05/06/20 12:25 Completed Lab/Rad Data: Laboratory Result Diagrams 05/06/20 12:25 05/06/20 12:25 Laboratory Results 05/06/20 05/06/20 Range/Units 12:25 12:25 WBC 14.0 H (4.0-10.5) K/mm3 RBC 4.24 (4.1-5.4) M/mm3 Hgb 12.7 (12.0-16.0) gm/dl Hct 37.3 (35-47) % MCV 88.0 (78-100) fl MCH 30.0 (26-32) pg MCHC 34.0 (32-36) g/dl RDW 13.0 (11.5-14.0) % Plt Count 245 (150-450) K/mm3 MPV 9.8 (7.5-11.0) fl Gran % 82.8 H (36.0-66.0) % Eos # (Auto) 0.08 (0-0.5) Absolute Lymphs (auto) 1.57 (1.0-4.6) Absolute Monos (auto) 0.74 (0.0-1.3) Lymphocytes % 11.2 L (24.0-44.0) % Monocytes % 5.3 (0.0-12.0) % Eosinophils % 0.6 (0.00-5.0) % Basophils % 0.1 (0.0-0.4) % Absolute Granulocytes 11.58 H (1.4-6.9) Basophils # 0.01 (0-0.4) Sodium 138 (137-145) mmol/L Potassium 3.7 (3.5-5.1) mmol/L Chloride 107 (98-107) mmol/L Carbon Dioxide 23 (22-30) mmol/L Anion Gap 12.1 (5-15) MEQ/L BUN 3 L (7-17) mg/dL Creatinine 0.47 L (0.52-1.04) mg/dL Estimated GFR > 60.0 ML/MIN Glucose 95 (74-106) mg/dL Calcium 9.3 (8.4-10.2) mg/dL - Progress Progress: re-examined, unchanged Air Movement: good Progress Note: 05/06/20 13:08 Obstetric ultrasound: The subchorionic hemorrhage area is smaller. There is a single viable intrauterine Blood Culture(s) Obtained: No Antibiotics given: No Counseled pt/family regarding: lab results, diagnosis, need for follow-up, rad results - Departure Departure Disposition: Home Clinical Impression: Subchorionic hemorrhage in second trimester Condition: Stable Critical Care Time: No Referrals: IDDIER GARG [Primary Care Provider] - Additional Instructions: Follow-up with your primary care physician/workers compensation administrator tomorrow to obtain further instructions.
[2020-05-06 12:30] LABS: Absolute Neutrophil Ct (ANC) 11.58 (1.4-6.9); BASOPHIL % 0.1 % (0.0-0.4); Basophil (Absolute #) 0.01 (0-0.4); Eosinophil % 0.6 % (0.00-5.0); Eosinophil (Absolute #) 0.08 (0-0.5); Hematocrit 37.3 % (35-47); Hemoglobin 12.7 gm/dl (12.0-16.0); Lymphocyte (Absolute #) 1.57 (1.0-4.6); Lymphocytes % 11.2 % (24.0-44.0); Mean Platelet Volume 9.8 fl (7.5-11.0); Monocyte (Absolute #) 0.74 (0.0-1.3); Monocytes % 5.3 % (0.0-12.0); Neutrophil % 82.8 % (36.0-66.0); Platelet Count 245 K/mm3 (150-450); Red Blood Count 4.24 M/mm3 (4.1-5.4)
[2020-05-06 12:42] LABS: ANION GAP 12.1 MEQ/L (5-15); BLOOD UREA NITROGEN 3 mg/dL (7-17); CHLORIDE 107 mmol/L (98-107); Calcium 9.3 mg/dL (8.4-10.2); Carbon Dioxide 23 mmol/L (22-30); Creatinine 1 0.47 mg/dL (0.52-1.04); Glucose 95 mg/dL (74-106); Potassium 3.7 mmol/L (3.5-5.1); SODIUM 138 mmol/L (137-145)
--- NOTE | 2020-05-06 12:55 | XRAY ---
Indication: Subchorionic hemorrhage. Two-dimensional transabdominal early OB ultrasound performed. Comparison: May 02, 2020. Again there is a single viable intrauterine with mean gestational age 14 weeks 1 day. heart rate 167 BPM. Posterior subchorionic hemorrhage today measures 3.4 x 2.7 x 0.6 cm, previously 4.1 x 3.5 x 0.7 cm. New fundal subchorionic hemorrhage measuring 0.9 x 1.1 x 1.1 cm. Cervix is closed measuring 3.9 cm in length. Impression: 1. Again single viable intrauterine measuring 14 days 1 day. 2. Posterior subchorionic hemorrhage appears smaller. New small fundal subchorionic hemorrhage. Measurements are above.
[2020-05-06 13:10] VITALS: O2SAT 100
[2020-05-06 13:11] VITALS: BP 122/64; PULSE 75
== END 2020-05-06 13:21 | disposition home or self-care (01) ==
LOC: ED 11:06
DX: O20.8 Other hemorrhage in early pregnancy (principal); Z3A.14 14 weeks gestation of pregnancy
CPT/HCPCS: 36415; 76805; 80048; 85025; 99284

== ENCOUNTER 2021-05-06 09:16 | Observation (INO) | payer OTHER ==
[2021-05-06 10:19] VITALS: BP 123/70; PULSE 77
== END 2021-05-06 10:50 | disposition home or self-care (01) ==
LOC: WHC 09:16 → OB 09:48
PROVIDERS: ADMIT Obstetrics & Gynecology; ATTEND Obstetrics & Gynecology
DX: Z34.83 Encounter for supervision of other normal pregnancy, third trimester (principal)
CPT/HCPCS: 59025; G0378; 59426

== ENCOUNTER 2021-05-08 19:38 | Observation (INO) | payer OTHER ==
[2021-05-08 20:27] LABS: Amphetamine,Urine NEGATIVE (NEGATIVE); Barbiturate,Urine NEGATIVE (NEGATIVE); Benzodiazepine,Urine NEGATIVE (NEGATIVE); Cocaine,Urine NEGATIVE (NEGATIVE); Methadone,Urine NEGATIVE (NEGATIVE); Opiate,Urine NEGATIVE (NEGATIVE); PCP,Urine NEGATIVE (NEGATIVE); THC,Urine NEGATIVE (NEGATIVE)
[2021-05-08 21:59] VITALS: BP 130/83; PULSE 84
== END 2021-05-08 21:42 | disposition home or self-care (01) ==
LOC: OB 19:38
PROVIDERS: ADMIT Family Medicine; ATTEND Family Medicine
DX: O36.8130 Decreased fetal movements, third trimester, not applicable or unspecified (principal); Z3A.35 35 weeks gestation of pregnancy
CPT/HCPCS: 80307; G0378

== ENCOUNTER 2021-05-13 09:40 | Observation (INO) | payer OTHER ==
[2021-05-13 10:28] VITALS: BP 118/63; PULSE 80; O2SAT 99
== END 2021-05-13 10:38 | disposition home or self-care (01) ==
LOC: UNDOADMOB 09:40 → MED SURG 09:40 → UNDODISOB 10:38
PROVIDERS: ADMIT Obstetrics & Gynecology; ATTEND Obstetrics & Gynecology
DX: Z34.83 Encounter for supervision of other normal pregnancy, third trimester (principal); Z3A.35 35 weeks gestation of pregnancy
CPT/HCPCS: 59025; G0378

== ENCOUNTER 2021-05-20 09:39 | Observation (INO) | payer OTHER ==
[2021-05-20 10:05] VITALS: BP 120/72; PULSE 86
== END 2021-05-20 10:15 | disposition home or self-care (01) ==
LOC: OB 09:39
PROVIDERS: ADMIT Obstetrics & Gynecology; ATTEND Obstetrics & Gynecology
DX: O16.3 Unspecified maternal hypertension, third trimester (principal); Z3A.36 36 weeks gestation of pregnancy
CPT/HCPCS: 59025; G0378

== ENCOUNTER 2021-05-27 09:35 | Observation (INO) | payer OTHER ==
[2021-05-27 10:20] VITALS: BP 126/67; PULSE 80; O2SAT 99
== END 2021-05-27 10:10 | disposition home or self-care (01) ==
LOC: MED SURG 09:35
PROVIDERS: ADMIT Obstetrics & Gynecology; ATTEND Obstetrics & Gynecology
DX: Z34.83 Encounter for supervision of other normal pregnancy, third trimester (principal); Z3A.37 37 weeks gestation of pregnancy
CPT/HCPCS: 59025; G0378

== ENCOUNTER 2021-06-02 00:27 | Inpatient (IN) | payer OTHER ==
[~2021-06-02 00:27] MED LIST: Colace 100 MG PO SCH; LANSINOH 40 GM TOP PRN; MOTRIN 400 MG PO PRN; Mylicon 80MG PO PRN; NORCO 5/325 MG PO PRN; TYLENOL EXTRA STRENGTH 500 MG PO PRN
[2021-06-02 05:47] LABS: Hematocrit 32.4 % (35-47); Hemoglobin 10.3 gm/dl (12.0-16.0); Mean Cell Volume 80.2 fl (78-100); Mean Corpuscular Hemoglobin 25.5 pg (26-32); Mean Corpuscular Hgb Concent. 31.8 g/dl (32-36); Platelet Count 250 K/mm3 (150-450); Red Blood Count 4.04 M/mm3 (4.1-5.4); Red Cell Distribution Width 13.3 % (11.5-14.0); White Blood Count 10.3 K/mm3 (4.0-10.5)
[2021-06-02 05:53] LABS: Appearance CLEAR (CLEAR); Bacteria RARE /HPF (NEGATIVE); Bilirubin NEGATIVE (NEGATIVE); Blood NEGATIVE Ery/ul (0-5); Epithelial Cells RARE /HPF (FEW); Glucose 50 mg/dL (NEGATIVE); Ketones NEGATIVE (NEGATIVE); Leukocyte Esterase TRACE (NEGATIVE); Mucus SLIGHT /HPF (NEGATIVE); Nitrite NEGATIVE (NEGATIVE); Protein,Urine Dip NEGATIVE (Negative); Specific Gravity 1.011 (1.005-1.025); Urobilinogen NEGATIVE mg/dL (0-1); WBC 0-2 /HPF (0-5)
[2021-06-02 05:53] LABS: INR 0.89 (0.8-3.0); PROTIME 10.5 SECONDS (9.4-12.5)
[2021-06-02 05:55] LABS: PTT 23.5 SECONDS (25.1-36.5)
[2021-06-02] MEDS: Lactated Ringers 1,000 ML IV ONE ×2 (06:07→06:53)
[2021-06-02 06:13] LABS: Amphetamine,Urine NEGATIVE (NEGATIVE); Barbiturate,Urine NEGATIVE (NEGATIVE); Benzodiazepine,Urine NEGATIVE (NEGATIVE); Cocaine,Urine NEGATIVE (NEGATIVE); Methadone,Urine NEGATIVE (NEGATIVE); Opiate,Urine NEGATIVE (NEGATIVE); PCP,Urine NEGATIVE (NEGATIVE); THC,Urine NEGATIVE (NEGATIVE)
[2021-06-02 06:55] LABS: ABO TYPING A; Antibody Screen NEGATIVE (NEGATIVE); RH TYPING POSITIVE
[2021-06-02] MEDS ORDERED: Reglan 10 MG/2 ML IV SCH (07:00)
[2021-06-02] MEDS ORDERED: Pepcid 20 MG VIAL IV SCH (07:00)
[2021-06-02] MEDS ORDERED: CEFAZOLIN 2 GM-D5W BAG** 2 GM/50 ML ML IV SCH (07:00)
[2021-06-02] MEDS ORDERED: SOD CITRATE-CITRIC ACID SOLN PO SCH (07:00)
[2021-06-02] MEDS ORDERED: Lactated Ringers 1,000 ML IV SCH (07:30)
[2021-06-02] MEDS ORDERED: Lactated Ringers 1,000 ML IV ONE ×2 (08:06→10:41)
[2021-06-02] MEDS ORDERED: Astramorph-Pf 5 MG/10 ML ONE (08:14)
[2021-06-02] MEDS ORDERED: Pitocin 10 UNITS/ML ONE ×3 (08:15→09:24)
[2021-06-02] MEDS ORDERED: TORAdol 30 mg Injection ONE (08:27)
[2021-06-02] MEDS ORDERED: Decadron 4 MG INJ ONE ×2 (08:28→09:22)
[2021-06-02] MEDS ORDERED: Zofran 4 MG/2 ML VIAL ONE (08:28)
[2021-06-02] MEDS ORDERED: Versed 2 MG/2 ML Injection ONE (08:53)
[2021-06-02] MEDS ORDERED: BENADRYL 50 MG/ML IV PRN (09:00)
[2021-06-02] MEDS ORDERED: Zofran 4 MG/2 ML VIAL IV PRN (09:00)
[2021-06-02] MEDS ORDERED: PERCOCET TABLET 5/325MG PO PRN (09:00)
[2021-06-02] MEDS ORDERED: MORPHINE SULFATE 2 MG INJ IV PRN (09:00)
[2021-06-02] MEDS ORDERED: DEMEROL 50 MG IV PRN (09:00)
[2021-06-02] MEDS ORDERED: Narcan 0.4 MG/ML IV PRN (09:00)
[2021-06-02] MEDS ORDERED: CLARITIN 10 MG PO PRN (09:00)
[2021-06-02] MEDS ORDERED: Nubain 10 MG/ML IV PRN (09:00)
[2021-06-02] MEDS ORDERED: NORCO 5/325 MG PO PRN (09:00)
[2021-06-02] MEDS ORDERED: HOLD NARCOTIC ANALGESICS AND SEDATIVES X24 HR MC PRN (09:00)
[2021-06-02] MEDS ORDERED: Marcaine 0.5%/Epinephrine 10 ML ONE (09:21)
[2021-06-02] MEDS ORDERED: DEMEROL 50 MG ONE (09:54)
[2021-06-02] MEDS ORDERED: LANSINOH 40 GM TOP PRN (10:00)
[2021-06-02 13:44] LABS: Appearance CLEAR (CLEAR); Bilirubin NEGATIVE (NEGATIVE); Blood NEGATIVE Ery/ul (0-5); Glucose 50 mg/dL (NEGATIVE); Ketones NEGATIVE (NEGATIVE); Leukocyte Esterase NEGATIVE (NEGATIVE); Nitrite NEGATIVE (NEGATIVE); Protein,Urine Dip NEGATIVE (Negative); Specific Gravity 1.005 (1.005-1.025); Urobilinogen NEGATIVE mg/dL (0-1)
[2021-06-02] MEDS: Dextrose 5%-Lr IV Solution 1000 ML 1,000 ML IV SCH ×2 (14:31→20:21)
[2021-06-02] MEDS ORDERED: CEFAZOLIN 2 GM-D5W BAG** 2 GM/50 ML ML IV ONE (17:00)
[2021-06-02] MEDS: MOTRIN 400 MG PO PRN (18:21)
[2021-06-02] MEDS: Colace 100 MG PO SCH ×2 (20:19→21:40)
[2021-06-02] MEDS: FOLATE 1 MG PO SCH (20:20)
[2021-06-02] MEDS: VITAMIN D PO SCH (20:20)
[2021-06-02] MEDS: Trandate 100 MG PO SCH ×2 (20:20→21:40)
[2021-06-02] MEDS: TYLENOL EXTRA STRENGTH 500 MG PO PRN (21:39)
[2021-06-02] MEDS: BUSPAR 5 MG PO SCH (21:40)
[2021-06-02] MEDS: Mylicon 80MG PO PRN (21:40)
[2021-06-02] MEDS ORDERED: LABETALOL HCL 200 MG PO SCH (22:00)
[2021-06-03] MEDS: Mylicon 80MG PO PRN ×2 (04:01→19:36)
[2021-06-03] MEDS: MOTRIN 400 MG PO PRN ×3 (04:01→19:36)
[2021-06-03] MEDS: Dextrose 5%-Lr IV Solution 1000 ML 1,000 ML IV SCH (04:05)
[2021-06-03 04:58] LABS: Absolute Neutrophil Ct (ANC) 12.87 (1.4-6.9); BASOPHIL % 0.1 % (0.0-0.4); Basophil (Absolute #) 0.01 (0-0.4); Eosinophil % 0.1 % (0.00-5.0); Eosinophil (Absolute #) 0.01 (0-0.5); Hematocrit 29.3 % (35-47); Lymphocyte (Absolute #) 2.67 (1.0-4.6); Lymphocytes % 15.6 % (24.0-44.0); Mean Cell Volume 81.2 fl (78-100); Mean Corpuscular Hemoglobin 24.9 pg (26-32); Mean Corpuscular Hgb Concent. 30.7 g/dl (32-36); Mean Platelet Volume 11.7 fl (7.5-11.0); Monocyte (Absolute #) 1.56 (0.0-1.3); Monocytes % 9.1 % (0.0-12.0); Neutrophil % 75.1 % (36.0-66.0); Platelet Count 270 K/mm3 (150-450); Red Blood Count 3.61 M/mm3 (4.1-5.4); Red Cell Distribution Width 13.3 % (11.5-14.0); White Blood Count 17.1 K/mm3 (4.0-10.5)
[2021-06-03 06:47] LABS: Slide Review 1 YES
--- NOTE | 2021-06-03 07:44 | OP ---
SURGERY DATE/TIME: 06/02/2021 0834 PREOPERATIVE DIAGNOSIS: Intrauterine at 38 weeks and 4 days gestation with previous section, with chronic hypertension, declined trial of labor for elective repeat section. POSTOPERATIVE DIAGNOSIS: Intrauterine at 38 weeks and 4 days gestation with previous section, with chronic hypertension, declined trial of labor for elective repeat section with nuchal cord x2. PROCEDURE: Repeat section, low flap transverse uterine incision, Pfannenstiel skin incision. SURGEON: Francisco Turner D.O. HEEL NAILING MACHINE OPERATOR: Rolando Sandoval, pipeline technician. ANESTHESIA: Spinal. ESTIMATED BLOOD LOSS: 400 cc. COMPLICATIONS: None. INDICATIONS: The risks, benefits, indications and alternatives of the procedure were reviewed with the patient prior to procedure. The patient understood the risk of infection, bleeding, bowel injury, bladder injury, ureteral injury, pelvic infection and thromboembolic disorder associated with the surgery however desires to have this surgery as a possible means to alleviate her current medical condition. DESCRIPTION OF PROCEDURE AND FINDINGS: At this point the patient is taken to the operating room where her spinal anesthesia was found to adequate. She was then prepared and draped in normal sterile fashion in the dorsal supine position with leftward tilt. A Pfannenstiel skin incision is made with a scalpel and carried through to the underlying layer of the fascia with a Bovie. The fascia was then incised in the midline and the incision extended laterally with Gillis scissors. The superior aspect of the fascial incision was then grasped Lee clamps elevated and the underlying rectus muscles dissected off bluntly. Attention is then turned to the inferior aspect of this incision which in similar fashion was grasped, tented up with Lee clamps and the rectus muscles dissected off bluntly. The rectus muscles were then at the midline and the peritoneum identified, tented up and entered sharply with Metzenbaum scissors. The peritoneal incision was then extended superiorly and inferiorly with good visualization of the bladder. The bladder blade was then inserted and the vesicouterine peritoneum identified, grasped with a pickup and entered sharply with Metzenbaum scissors. This incision was then extended laterally and bladder flap created digitally. The bladder blade was then re-inserted and the lower uterine segment incised in transverse fashion with a scalpel. The uterine incision was then extended laterally with bandage scissors. The bladder blade was then removed and the infants head was delivered atraumatically with nuchal cord x3 which was reduced. The nose and mouth were suctioned with bulb suction cup. The cord clamped and cut. The infant was then handed off to the awaiting nurses. The placenta was then removed manually. The uterus exteriorized and cleared of all clots and debris. The uterine incision was repaired with 1-0 chromic in a running locked fashion. The second layer of the same suture was used to obtain excellent hemostasis. The uterus is then returned to the abdomen. The gutters were cleared of all clots and the peritoneal muscle closed in interrupted fashion using 2-0 chromic suture. The fascia was re-approximated with 0 Vicryl in running fashion. The subcutaneous layer was closed with 3-0 Vicryl suture. The skin was closed with absorbable adams called INSORB. The patient tolerated the procedure well. Sponge, lap, needle and instrument counts were correct x2. The patient was then taken to the recovery room in stable condition. The patient delivered a live baby boy at 0905 hours. 's were 8 at 1 minute and 9 at 5 minutes. The weight of the baby was 6 pounds 13 ounces.
--- NOTE | 2021-06-03 08:18 | PCM.NOTE ---
Date and Time: 06/03/21816 Subjective Assessment: POD 1 SP CSECTION PT RESTING IN BED AND DOING WELL VSS AFEBRILE ABD; SOFT INCISION C/D/INTACT UTERUS; FIRM LOCHIA; MILD A/P SP CSECTION POD 1 ANTICIPATE DC HOME TOMORROW OBJECTIVE DATA Vital Signs: Vital Signs - 24 hr Temp Pulse Resp BP Pulse Ox 06/03/21 04:00 98.3 F 72 17 147/86 97 06/03/21 03:35 157/88 06/03/21 00:00 98.2 F 67 17 135/76 97 06/02/21 21:35 98.1 F 77 18 130/82 98 06/02/21 20:00 98.3 F 75 17 153/88 100 06/02/21 19:00 100 06/02/21 18:00 100 06/02/21 17:00 100 06/02/21 16:00 99 06/02/21 15:00 98 06/02/21 14:00 58 L 18 124/68 100 06/02/21 13:00 63 120/76 97 06/02/21 12:00 97 06/02/21 11:00 59 L 112/62 97 06/02/21 10:45 57 L 20 116/70 98 06/02/21 10:30 55 L 18 122/75 98 Pain Assessment - Last Documented Pain Intensity [Abdomen/Pelvis 3 ] Pain Intensity 0 Pain Scale Used 0-10 Pain Scale Intake and Output: Intake & Output 05/31/21 06/01/21 06/02/21 06/03/21 11:59 11:59 11:59 11:59 Intake Total 5752 Output Total 7450 Balance -1698 Weight 86.183 kg Lab Results: Lab Results-Last 24 Hours 06/02/21 06/03/21 Range/Units 08:52 04:12 WBC 17.1 H (4.0-10.5) K/mm3 RBC 3.61 L (4.1-5.4) M/mm3 Hgb 9.0 L (12.0-16.0) gm/dl Hct 29.3 L (35-47) % MCV 81.2 (78-100) fl MCH 24.9 L (26-32) pg MCHC 30.7 L (32-36) g/dl RDW 13.3 (11.5-14.0) % Plt Count 270 (150-450) K/mm3 MPV 11.7 H (7.5-11.0) fl Gran % 75.1 H (36.0-66.0) % Eos # (Auto) 0.01 (0-0.5) Absolute Lymphs (auto) 2.67 (1.0-4.6) Absolute Monos (auto) 1.56 H (0.0-1.3) Lymphocytes % 15.6 L (24.0-44.0) % Monocytes % 9.1 (0.0-12.0) % Eosinophils % 0.1 (0.00-5.0) % Basophils % 0.1 (0.0-0.4) % Absolute Granulocytes 12.87 H (1.4-6.9) Basophils # 0.01 (0-0.4) Urine Color STRAW (YELLOW) Urine Appearance CLEAR (CLEAR) Urine pH 7.0 (5-6) Ur Specific [place] 1.005 (1.005-1.025) Urine Protein NEGATIVE (Negative) Urine Ketones NEGATIVE (NEGATIVE) Urine Blood NEGATIVE (0-5) [place]/ul Urine Nitrite NEGATIVE (NEGATIVE) Urine Bilirubin NEGATIVE (NEGATIVE) Urine Urobilinogen NEGATIVE (0-1) mg/dL Ur Leukocyte Esterase NEGATIVE (NEGATIVE) Urine WBC (Auto) NONE (0-5) /HPF Urine RBC (Auto) NONE (0-2) /HPF U Epithel Cells (Auto) NONE (FEW) /HPF Urine Bacteria (Auto) NONE (NEGATIVE) /HPF Urine Glucose 50 (NEGATIVE) mg/dL Slides for Path Review YES Multi-Disciplinary Progress Notes: Multi-Disciplinary Progress Notes 06/02/21 09:37 Respiratory Note by Bridgette Maldonado Baby born and immediately crying. Baby dried off and stimulated. Continues to cry. HR 140s. O2 sat 87% just after and increased to 95%. Addendum entered by Bridgette Maldonado 06/02/21 09:49: 06/02/2106 Initialized on 06/02/21 09:37 - END OF NOTE
[2021-06-03] MEDS: FOLATE 1 MG PO SCH (09:44)
[2021-06-03] MEDS: VITAMIN D PO SCH (09:44)
[2021-06-03] MEDS: Trandate 100 MG PO SCH ×2 (09:45→20:59)
[2021-06-03] MEDS: Colace 100 MG PO SCH ×2 (09:45→22:05)
[2021-06-03] MEDS: TYLENOL EXTRA STRENGTH 500 MG PO PRN ×3 (09:51→22:05)
[2021-06-03] MEDS ORDERED: ECOTRIN 81 MG PO SCH (10:00)
[2021-06-03] MEDS ORDERED: ENOXAPARIN SODIUM SQ SCH (10:00)
[2021-06-03] MEDS ORDERED: Adacel Vial IM ONE (10:00)
[2021-06-03 11:15] LABS: HBsAg Screen Negative (Negative)
--- NOTE | 2021-06-03 15:40 | PCM.DS ---
Discharge Summary Date of Admission: 06/02/21 04:50 Admitting Physician: FRANCISCO WASHBURN DO Consults: Consults on Case 06/02/21 07:00 Notify Anesthesia Provider PRN Notify Anesthesia Provider ROUTINE 06/02/21 11:21 Navigation ONCE Primary Care Provider: DIDIER SORIA Allergies Allergies Sulfa (Sulfonamide Antibiotics) Allergy (Intermediate, Verified 06/02/21 05:20) [facility] Summary - Hospital Course Hospital Course: pt admitted on june 02 for undergoing repeat csection and was done so without complication. during postop period did well was able to ambulate and tolerate diet. pt had stable hgb and at this time stable for dc on june 04. all questions answered to her satisfaction and was advised to fu in office in 2 wks. - Vitals & Intake/Output Vital Signs: Vital Signs Temperature 98.1 F 06/03/21 08:00 Pulse Rate 91 H 06/03/21 08:00 Respiratory Rate 18 06/03/21 08:00 Blood Pressure 120/81 06/03/21 08:00 O2 Sat by Pulse Oximetry 97 06/03/21 04:00 Intake & Output: Intake & Output 06/01/21 06/02/21 06/03/21 06/04/21 11:59 11:59 11:59 11:59 Intake Total 5752 Output Total 7461 Balance -1698 Weight 86.183 kg - Lab Result Diagrams: 06/03/21 04:12 Lab Results-Last 24 Hrs: Lab Results-Last 24 Hours 06/02/21 06/03/21 Range/Units 05:30 04:12 WBC 17.1 H (4.0-10.5) K/mm3 RBC 3.61 L (4.1-5.4) M/mm3 Hgb 9.0 L (12.0-16.0) gm/dl Hct 29.3 L (35-47) % MCV 81.2 (78-100) fl MCH 24.9 L (26-32) pg MCHC 30.7 L (32-36) g/dl RDW 13.3 (11.5-14.0) % Plt Count 270 (150-450) K/mm3 MPV 11.7 H (7.5-11.0) fl Gran % 75.1 H (36.0-66.0) % Eos # (Auto) 0.01 (0-0.5) Absolute Lymphs (auto) 2.67 (1.0-4.6) Absolute Monos (auto) 1.56 H (0.0-1.3) Lymphocytes % 15.6 L (24.0-44.0) % Monocytes % 9.1 (0.0-12.0) % Eosinophils % 0.1 (0.00-5.0) % Basophils % 0.1 (0.0-0.4) % Absolute Granulocytes 12.87 H (1.4-6.9) Basophils # 0.01 (0-0.4) Hep Bs Antigen Negative (Negative) Slides for Path Review YES Micro Results-Entire Visit: Microbiology 06/02/21 08:52 Urine Culture - Preliminary Urine, Catheterized NO GROWTH TO DATE 06/02/21 05:46 Urine Culture - Final Urine, Indwelling Catheter NO GROWTH - Procedures and Test Procedures and Tests throughout Hospitalization: Therapy Orders & Screens 06/02/21 09:46 Standby STAT Comment: Diagnosis: Repeat Section Final Diagnosis/Problem List - Final Discharge Diagnosis/Problem (1) S/P repeat low transverse Current Visit: Yes Status: Acute Code(s): Z98.891 - HISTORY OF UTERINE SCAR FROM PREVIOUS SURGERY - Discharge Disposition: Home, Self-Care Condition: Stable Prescriptions: New Hydrocodone/Acetaminophen [Hydrocodone-Acetamin 5-325 mg] 1 tab PO Q6HPRN PRN #14 tablet MDD 4 PRN Reason: Pain Continue Labetalol HCl 200 mg PO BID Aspirin [Aspirin EC] 162 mg PO DAILY Buspirone HCl 5 mg PO HS Cholecalciferol (Vitamin D3) [Vitamin D] 2,000 units PO DAILY Folic Acid 1 mg [Folate 1 mg] 1 mg PO DAILY Instructions: Depression, ( Delivery), Wound Care, What to Watch for After You Have a Baby Follow up with: DIDIER SORIA [Primary Care Provider] - FRANCISCO WASHBURN DO [ACTIVE STAFF] - 2 weeks
[2021-06-03] MEDS: BUSPAR 5 MG PO SCH (20:59)
[2021-06-03] MEDS ORDERED: Trandate 100 MG PO ONE (22:28)
[2021-06-03] MEDS ORDERED: Adalat CC 30 MG TABLET PO ONE ×2 (22:33→22:43)
[2021-06-03] MEDS ORDERED: PROCARDIA 10 MG ONE (22:35)
[2021-06-04 04:43] VITALS: O2SAT 99
[2021-06-04] MEDS ORDERED: Apresoline 25 MG TABLET PO ONE (04:55)
[2021-06-04] MEDS: MOTRIN 400 MG PO PRN (05:00)
[2021-06-04 11:17] VITALS: BP 141/87; PULSE 89
[2021-06-04] MEDS ORDERED: Adalat CC 30 MG TABLET PO ONE (22:33)
== END 2021-06-04 10:50 | disposition home or self-care (01) | DRG 788 ==
LOC: EDSTATUS 00:27 → OB 04:50
PROVIDERS: ADMIT Obstetrics & Gynecology; ATTEND Obstetrics & Gynecology
PROC: 10D00Z1 Extraction of Products of Conception, Low, Open Approach (ICD-10-PCS; principal; 2021-06-02)
DX: O34.219 Maternal care for unspecified type scar from previous cesarean delivery (principal); O16.4 Unspecified maternal hypertension, complicating childbirth; O69.0XX0 Labor and delivery complicated by prolapse of cord, not applicable or unspecified; Z3A.38 38 weeks gestation of pregnancy; Z37.0 Single live birth
CPT/HCPCS: 36415; 62322; 64488; 76937; 76942; 80307; 81001; 85025; 85027; 85610; 85730; 86850; 86900; 86901; 87086; 87340; 90471; 90715; 94799; J0690; J1100; J1650; J1885; J2175; J2250; J2274; J2405; J2590; L0625; A9270-GY